=== PATIENT | female | born 1950 | race Caucasian/White ===

== ENCOUNTER → 2017-09-21 | Day surgery (SDC) | payer OTHER, MEDICARE ==
--- NOTE | 2017-09-22 13:47 | PATH ---
Surgical Pathology Report Patient Name: CAROLE HEMPHILL [facility]. Rec. #: [id number] /Age/Gender: 1950 (Age: 67) / F Account: [id number] Location: [facility] / [facility] Taken: 09/21/2017 Received: 09/21/2017 Reported: 09/22/2017 Physicians: Xavier Pham M.D. Specimen(s) Received A: LEFT BREAST 12.30 B: LEFT BREAST 12.30 Clinical History Nonpalpable lesion Ultrasound findings: Probably benign Final Diagnosis A. BREAST, LEFT, 12:30, ULTRASOUND GUIDED CORE BIOPSY: BENIGN BREAST TISSUE WITH FOCAL FIBROSIS, MILD CHRONIC INFLAMMATION AND HISTIOCYTIC PROLIFERATION CONSISTENT WITH FAT NECROSIS. B. BREAST, LEFT, 12:30, ULTRASOUND GUIDED CORE BIOPSY: BENIGN BREAST TISSUE WITH FIBROCYSTIC CHANGE INCLUDING STROMAL FIBROSIS AND FEW MICROCYSTS. Electronically Signed Amita Spaulding M.D. Gross Description A. Received in formalin labeled "left 12:30," are 2 abernathy-yellow, cylindrical portions of fibroadipose tissue averaging 1.2 cm in length and 0.1 cm in diameter. The specimens are submitted in toto in one cassette. B. Received in formalin labeled "left 12:30," are 2 abernathy-yellow, cylindrical portions of fibroadipose tissue measuring 0.9 and 1.4 cm in length and averaging 0.1 cm in diameter. The specimens are submitted in toto in one cassette. Total formalin fixation time: Between 6-10 hours 09/21/201709/21/2017
== END | disposition home or self-care (01) ==
LOC: JRADUS-SUR 11:58
PROVIDERS: ATTEND Internal Medicine
PROC: 0HBU3ZX Excision of Left Breast, Percutaneous Approach, Diagnostic (ICD-10-PCS; principal; 2017-09-21)
DX: N60.32 Fibrosclerosis of left breast (principal)
CPT/HCPCS: 19083; 19084; 87899; 88305-TC; A4648

== ENCOUNTER 2021-05-07 05:20 | Day surgery (SDC) | payer OTHER, MEDICARE ==
[2021-05-03 16:52] VITALS: BMI 22.9
[2021-05-07 13:07] VITALS: TEMP 97.8
[2021-05-07 13:38] VITALS: BP 118/51; PULSE 54
== END 2021-05-07 13:55 | disposition home or self-care (01) ==
LOC: JASU-ENDO 05:20
PROVIDERS: ATTEND Internal Medicine Gastroenterology
PROC: 0DBN8ZX Excision of Sigmoid Colon, Via Natural or Artificial Opening Endoscopic, Diagnostic (ICD-10-PCS; principal; 2021-05-07 10:45)
DX: Z12.11 Encounter for screening for malignant neoplasm of colon (principal); D12.7 Benign neoplasm of rectosigmoid junction; K57.30 Diverticulosis of large intestine without perforation or abscess without bleeding; K64.8 Other hemorrhoids
CPT/HCPCS: 88305-TC